=== PATIENT | female | born 2005 | race Caucasian/White ===

== ENCOUNTER 2025-04-14 19:38 | Emergency (ER) | payer SELFPAY ==
[2025-04-14 20:58] LABS: #Basophils 0.03 10x3/uL (0.0-0.2); #Eosinophils 0.04 10x3/uL (0.0-0.5); #Monocytes 0.47 10x3/uL (0.0-1.1); #Neutrophils 6.42 10x3/uL (1.5-8.4); %Basophils 0.3 % (0.0-2.0); %Eosinophils 0.4 % (0.0-6.0); %Lymphocytes 26.0 % (18.0-47.0); %Monocytes 5.0 % (0.0-10.0); %Neutrophils 68.1 % (40.0-75.0); Hematocrit 43.1 % (34.9-44.5); Hemoglobin 14.8 g/dL (12.0-15.5); Mean Corpuscular Hemoglobin 28.5 pg (27.0-33.0); Mean Corpuscular Volume 82.9 fL (81.6-98.3); Platelet Count 257 10x3/uL (150-450); Red Blood Cell (RBC) Count 5.20 10x6/uL (3.90-5.03); White Blood Cell (WBC) Count 9.43 10x3/uL (3.5-10.5)
[2025-04-14] MEDS ORDERED: Ondansetron PF 4 MG/2 ML Vial ONE (21:04)
[2025-04-14] MEDS ORDERED: Ketorolac Tromethamine 30 MG (1 mL) VIAL ONE (21:04)
[2025-04-14 21:18] LABS: ALT (SGPT) 8 U/L (Less than 34); AST (SGOT) 24 U/L (11-34); Albumin 4.8 g/dL (3.1-4.5); Alkaline Phosphatase 54 U/L (40-100); Anion Gap 13 mmol/L (10-20); BUN (Urea Nitrogen) 11 mg/dL (7.0-18.7); Bilirubin, Total 0.7 mg/dL (0.3-1.2); Calc. Creatinine Clearance 0 mL/min (70-130); Calcium 9.8 mg/dL (7.8-10.44); Carbon Dioxide 27 mmol/L (22-29); Chloride 104 mmol/L (98-107); Globulin 3.4 g/dL (2.4-3.5); Glucose 96 mg/dL (70-105); Lipase 13 U/L (8-78); Potassium 4.2 mmol/L (3.5-5.1); Sodium 140 mmol/L (136-145)
[2025-04-14 22:26] LABS: Glucose, Urine (Dipstick) Normal (Negative); Leukocyte Negative (Negative); Protein, Urine (Dipstick) 15 mg/dl (Neg-Trace); Specific Gravity, Urine 1.015 (1.005-1.030)
[2025-04-14 22:35] LABS: Bacteria/HPF None Seen HPF (None Seen); CAUTI Indications for Culture Dysuria,urgency,freq; WBC/HPF 0-3 HPF (0-3)
[2025-04-14 22:36] LABS: Urine Culture Reflex No No
== END 2025-04-14 22:51 | disposition home or self-care (01) ==
LOC: CSHERS 19:38
DX: R11.2 Nausea with vomiting, unspecified (principal); R10.84 Generalized abdominal pain; F17.290 Nicotine dependence, other tobacco product, uncomplicated
CPT/HCPCS: 36415; 80053; 81001; 83690; 84702; 85025; 96374; 96375; J1885; J2270; J2405